=== PATIENT | female | born 1990 | race Hispanic/Latino ===

== ENCOUNTER → 2018-05-04 | Outpatient (CLI) | payer MEDICAID ==
[2018-05-04 13:17] LABS: HEMATOCRIT 35.4 % (36.0-47.0); HEMOGLOBIN 11.7 g/dl (12.0-15.5); MEAN CORPUSCULAR HEMOGLOBIN 29.3 pg (27.0-33.0); MEAN CORPUSCULAR HGB CONC 33.1 g/dl (32.0-36.5); MEAN CORPUSCULAR VOLUME 88.7 fl (80.0-96.0); PLATELET COUNT, AUTOMATED 205 10^3/uL (150-450); RED BLOOD COUNT 3.99 10^6/uL (4.00-5.40); WHITE BLOOD COUNT 7.2 10^3/uL (4.0-10.0)
== END ==
LOC: M SMT 09:53
PROVIDERS: ATTEND Advanced Practice Midwife
DX: Z34.82 Encounter for supervision of other normal pregnancy, second trimester (principal); Z36.89 Encounter for other specified antenatal screening

== ENCOUNTER → 2018-06-24 | Outpatient (CLI) | payer OTHER | LOC: M SMT 10:28 | PROVIDERS: ATTEND Advanced Practice Midwife | DX: O99.513 Diseases of the respiratory system complicating pregnancy, third trimester (principal); Z3A.00 Weeks of gestation of pregnancy not specified ==

== ENCOUNTER 2018-07-12 19:17 | Inpatient (IN) | payer OTHER ==
[~2018-07-12] VITALS: Ht 175.3 cm; Wt 109.0 kg
[2018-07-12] VITALS (13 sets, daily range): BP systolic 116–182; BP diastolic 62–100
--- NOTE | 2018-07-12 20:23 | HPE ---
DATE OF ADMISSION: 07/12/2018 27-year-old, 1, para 0 female at 39-2/7 weeks gestation by last menstrual period (LMP) consistent with 9 week ultrasound, estimated date of confinement (EDC) of 07/17/2018, presents with spontaneous loss of fluid per vagina at about 5 p.m. on the day of admission and continued to leak fluid. Contractions started to increase over the next hour and became intense. She denies vaginal bleeding. There is good movement. COURSE: The patient's initial care was in [place]. She transferred to [place] at 29 weeks of gestation on 05/04/2018. Her course was unremarkable. MEDICAL HISTORY: 1. Mild asthma. SURGICAL HISTORY: None. ALLERGIES: None. SOCIAL HISTORY: The patient lives in [place]. She denies cigarettes, alcohol, or drug use. Father of the baby is involved. FAMILY HISTORY: Noncontributory. PHYSICAL EXAMINATION: Blood pressure 134/84, pulse 84. GENERAL: She appears uncomfortable. HEAD AND NECK EXAM: Normal. LUNGS: Clear. HEART: Regular rate and rhythm. ABDOMEN: Nontender, gravid. heart tones category 1. Contractions every 2-3 minutes. STERILE VAGINAL EXAM: 1 cm, 50%, -2, grossly ruptured, clear fluid. EXTREMITIES: Nontender. LABORATORY DATA: Blood type O positive, Rubella equivocal, diabetes screen 118, GBS negative 06/24/2018. ASSESSMENT: 27-year-old, 1 at 39-2/7 weeks gestation presents with spontaneous rupture of membranes in early labor. PLAN: Plan is to admit on 07/12/2018.
[2018-07-12 20:35] LABS: HEMOGLOBIN 13.7 g/dl (12.0-15.5); MEAN CORPUSCULAR HEMOGLOBIN 29.5 pg (27.0-33.0); MEAN CORPUSCULAR HGB CONC 34.3 g/dl (32.0-36.5); MEAN CORPUSCULAR VOLUME 86.2 fl (80.0-96.0); PLATELET COUNT, AUTOMATED 204 10^3/uL (150-450); RED BLOOD COUNT 4.64 10^6/uL (4.00-5.40); WHITE BLOOD COUNT 10.5 10^3/uL (4.0-10.0)
[2018-07-12] MEDS ORDERED: FENTANYL 2MCG/ML ROPIVACAINE 0.2% IN 0.9% NACL 100ML IVBAG As Ordered ONE (22:34)
[2018-07-12] MEDS ORDERED: EPIDURAL COMMENT XX SCH (23:45)
[2018-07-12] MEDS ORDERED: FENTANYL/ROPIVACAINE/NACL BAG 100 ML EPIDURAL SCH (23:45)
[2018-07-12] MEDS ORDERED: ONDANSETRON 4MG/2ML VIAL (J2405) IV PRN (23:45)
[2018-07-12] MEDS ORDERED: ePHEDrine SULFATE 25 MG/5 ML(5MG/ML) SYRINGE IV PRN (23:45)
[2018-07-12] MEDS ORDERED: diphenhydrAMINE INJ 50MG/ML VIAL (J1200) IV PRN (23:45)
[2018-07-12] MEDS ORDERED: EPIDURAL/PCA KEYS XX PRN (23:45)
[2018-07-12] MEDS ORDERED: NALOXONE INJ 0.4 MG/1 ML VIAL (J2310) IV PRN (23:45)
[2018-07-12] MEDS ORDERED: REFRIGERATOR IV KEYS XX PRN (23:45)
[2018-07-13] VITALS (8 sets, daily range): BP systolic 107–131; BP diastolic 56–83
[2018-07-13] MEDS ORDERED: OXYTOCIN 30 UNITS IN 0.9% NaCl 500ML IV BAG (J2590) As Ordered ONE (00:30)
[2018-07-13] MEDS ORDERED: DOCUSATE SODIUM 100 MG CAP PO PRN (01:15)
[2018-07-13] MEDS ORDERED: MEASLES,MUMPS,RUBELLA VACCINE INJ (MMR-II) (90707) SC SCH (01:15)
[2018-07-13] MEDS ORDERED: OXYTOCIN DRIP 30 UNITS in APPROPRIATE DILUENT 1 EA IV ONE (01:15)
[2018-07-13] MEDS ORDERED: RHOGAM 300 MCG (1500 IU) INJ (J2790) IM SCH (01:15)
[2018-07-13] MEDS ORDERED: ONDANSETRON 4MG/2ML VIAL (J2405) IV PRN (01:15)
[2018-07-13] MEDS ORDERED: ACETAMINOPHEN 500 MG TAB PO PRN (01:15)
[2018-07-13] MEDS ORDERED: DIBUCAINE 1% OINTMENT 30GM TOP PRN (01:15)
[2018-07-13] MEDS ORDERED: METHYLERGONOVINE MALEATE 0.2 MG TAB PO PRN (01:15)
[2018-07-13] MEDS: PRENATAL VITAMINS CHEWABLE TABLET PO SCH (09:10)
--- NOTE | 2018-07-13 15:37 | DN ---
DATE: 07/13/2018 PREDELIVERY DIAGNOSIS: A 39+ week spontaneous rupture of membranes, labor. POSTDELIVERY DIAGNOSIS: Delivered. PROCEDURE: Spontaneous vaginal delivery. EMAIL ENGINEER: Dr. New Schroeder ANESTHESIA: Epidural ESTIMATED BLOOD LOSS: 300 mL. FINDINGS: A 7 pound 3 ounce male infant, scores 9 and 9, 3250 grams. DELIVERY SUMMARY: After a short second stage of approximately 15 minutes, the patient had the spontaneous delivery of a 7 pound 3 ounce male , scores 9 and 9 under epidural anesthesia. There was no nuchal cord. The shoulders delivered with ease. The infant was handed to the mother and cried immediately. The cord was doubly clamped and cut. Placenta delivered spontaneous and appeared to be intact. The patient received intravenous (IV) Pitocin immediately after delivery of the placenta. First-degree perineal laceration was repaired with a [id number] suture of 2-0 chromic. Sponge and needle counts were correct.
[2018-07-13] MEDS: IBUPROFEN 800 MG TAB PO PRN (16:55)
[2018-07-14 06:00] VITALS: BP 94/55
[2018-07-14] MEDS: IBUPROFEN 800 MG TAB PO PRN (08:00)
[2018-07-14] MEDS: PRENATAL VITAMINS CHEWABLE TABLET PO SCH (08:00)
[2018-07-14 14:00] VITALS: BP 125/78
[2018-07-15 06:00] VITALS: BP 125/67
--- NOTE | 2018-07-15 06:43 | NUR ---
Day 2 s/p , uncomplicated S: Pain well controlled, tolerating PO, ambulating without difficulty, voiding spontaneously, lochia decreasing and minimal. Denies f/c/n/v/MORALES/sob/cp. O: Normotensive, normal HR, afebrile ABD: soft, nt, nd, U-2cm and firm A/P: PPD#2. Recovering well. Hemodynamically stable, afebrile, good pain control. -Routine care -Anticipate d/c home today. Savita Mcclellan DO
[2018-07-15] MEDS ORDERED: ACET-683 PO (07:13)
[2018-07-15] MEDS ORDERED: IBUP80TA PO (07:13)
[2018-07-15] MEDS: PRENATAL VITAMINS CHEWABLE TABLET PO SCH (07:44)
[2018-07-15] MEDS: IBUPROFEN 800 MG TAB PO PRN (07:44)
== END 2018-07-15 11:50 | disposition home or self-care (01) | DRG 560 ==
LOC: M LDO 19:17 → M LDI 19:48 → M OBS 07-13 02:36
PROVIDERS: ADMIT Specialist; ATTEND Specialist
PROC: 10E0XZZ Delivery of Products of Conception, External Approach (ICD-10-PCS; principal; 2018-07-13)
PROC: 0HQ9XZZ Repair Perineum Skin, External Approach (ICD-10-PCS; 2018-07-13)
DX: O70.0 First degree perineal laceration during delivery (principal); Z37.0 Single live birth; Z3A.39 39 weeks gestation of pregnancy

== ENCOUNTER 2020-01-18 23:20 | Inpatient (IN) | payer MEDICAID, OTHER ==
[~2020-01-18] VITALS: Ht 175.3 cm; Wt 114.0 kg
[~2020-01-18 23:20] MED LIST: ACET-683 PO; IBUP80TA PO
[2020-01-19] MEDS ORDERED: ALBU83IN INH (00:29)
[2020-01-19] MEDS ORDERED: PROAAER10 INH (00:29)
[2020-01-19] MEDS ORDERED: ALBUTEROL 90 MCG/ACT 8GM HFA INHALER INH PRN (00:45)
[2020-01-19] MEDS ORDERED: VANCOMYCIN HCL 1,000 MG in IV FLUID PLACE HOLDER 1 EA IV SCH (01:00)
[2020-01-19] MEDS ORDERED: PIPERACILLIN/TAZOBACTAM SOD 3.375 GM in D5W MINI-BAG PLUS 50 ML IV ONE (01:00)
[2020-01-19 01:25] VITALS: BP 113/58
[2020-01-19] MEDS ORDERED: MORPHINE 2 MG/ML 1ML VIAL (J2270) IV PRN (01:30)
--- NOTE | 2020-01-19 01:41 | IPNPDOC ---
Text Note Date of Service The patient was seen on 01/19/20. VS,Fishbone, I+O VS, Fishbone, I+O Vital Signs Date Time Temp Pulse Resp B/P (MAP) Pulse Ox O2 Delivery O2 Flow Rate FiO2 01/19/20 01:01 110/69 (83) 01/19/20 00:50 88 17 99 Room Air 01/18/20 23:29 98.0 NOHEMI NESS MD Jan 19, 2020 01:41
[2020-01-19] MEDS: NS 1,000 ML IV SCH ×3 (02:02→22:12)
[2020-01-19] MEDS ORDERED: VANCOMYCIN HCL 1,000 MG, VIAL MATE ADAPTER 1 EACH in D5W 250 ML IV ONE ×2 (02:15→04:00)
[2020-01-19 02:20] LABS: GLOMERULAR FILTRATION RATE > 60.0 (>60)
--- NOTE | 2020-01-19 03:11 | HPEPDOC ---
[facility] Medical History & Physical Date of Admission Jan 19, 2020 Date of Service: Jan 19, 2020 Attending Physician: NOHEMI NESS MD History and Physical CHIEF COMPLAINT: Left sided back pain, fever, nausea vomiting HISTORY OF PRESENT ILLNESS: Patient is a 29 year old female who presented to the [facility] ER as a transfer from [facility] for complaint of fever and back pain. Patient states that she had went to go to the bathroom yesterday and subsequently developed severe pain on the left side of her lower back. She stated that she also noticed decreased feeling and weakness in that leg. She stated that she had fallen yesterday and once this morning. She went to [place] to be evaluated. At the time she was found to be febrile. She received a CT of the head and lumbar spine which were negative with exception to disc bulge at L4-L5 region. Her labs demonstrated a mild transaminitis and mild leukopenia of 3.7. Lactic acid was 2.3. She was vitally stable although tachycardic. She received Rocephin and Azithromycin. The patient was transferred to [facility] due to possibility of COVID At [facility] the patient was test for COVID which resulted negative. She stated that her back pain had improved with morphine. She currently states that she has had nausea and vomiting and has been unable to keep anything down. She states that she does have some mild abdominal pain although she is unsure if this is due to her vomiting. She denies any dysuria or increased frequency. She denies any chest pain or shortness of breath. Hospitalist service was consulted and the patient was admitted for further evaluation and management PAST MEDICAL HISTORY: 1. Asthma PAST SURGICAL HISTORY: NONE SOCIAL HISTORY: Patient lives at home with her boyfriend and son. She is a former smoker. She quit 3 years ago. She denies any alcohol or IV illicit drug use. She is a stay at home mom. She denies any recent sick contacts. She denies any recent travel out of [facility] FAMILY HISTORY: Patients parents and sibilings are alive and well. She denies any pertinent family history ALLERGIES: Please see below. REVIEW OF SYSTEMS: CONSTITUTIONAL: Admits to fevers and chills. Denies nightsweats. Denies unintentional weight loss HEENT: Denies changes in vision. Admits to headache. Denies difficulty swallowing. Denies pain on swallowing CARDIOVASCULAR: Denies chest pain. Denies palpitations or feelings of the heart racing RESPIRATORY: Admits to some shortness of breath although at her baseline. Denies cough or wheezing GASTROINTESTINAL: Admits to abdominal discomfort. Admits to nausea and vomiting. Denies diarrhea or constipation GENITOURINARY: Denies difficulty urinating. Denies dysuria. Denies increased frequency SKIN: Denies rashes or lesions MUSCULOSKELETAL: Admits to left lower back pain that can be severe NEUROLOGICAL: Admits falling due to back pain. Denies weakness. Denies changes in speech PSYCHIATRIC: Denies depression or anxiety ENDOCRINE: Denies heat intolerance or cold intolerance HEMATOLOGIC/LYMPHATIC: Denies easy bruising or bleeding. Denies history of DVT or PE HOME MEDICATIONS: Please see below. PHYSICAL EXAMINATION: VITAL SIGNS: Temperature 98.0, pulse 102, respiratory rate 17, blood pressure 120/66, pulse oximetry 98% on room air. GENERAL APPEARANCE: Patient is awake, alert, and oriented. She does not appear to be in any acute distress. Lying comfortably in stretcher HEENT: Atraumatic, normocephalic. Eyes are nonicteric. Trachea is midline. Mucous membranes are pink and moist CARDIOVASCULAR: Normal S1, S2. Tachycardic rate. Regular rhythm. No clicks rubs or murmurs LUNGS: Clear vesicular breath sounds bilaterally. Symmetric chest expansion. No wheezes, rhonchi or rales ABDOMEN: Soft, morbidly obese. Mild tenderness diffusely. Normoactive bowel sounds MUSCULOSKELETAL: 5/5 muscle strength testing in bilateral upper and lower extremities EXTREMITIES: No edema. No calf swelling, tenderness, or discoloration. Full and equal pulses in bilateral upper and lower extremities NEUROLOGICAL: No focal neurological deficits PSYCHIATRIC: Mood and affect appear appropriate LABORATORY DATA: See below. IMAGING: CT Head from [place] demonstrating no acute intracranial pathology. CT lumbar spine demonstrating L4-L5 disc bulge. Full reports available in paper chart MICROBIOLOGY: Please see below. ASSESSMENT: Patient is a 29 year old female who presented to the [facility] ER as a transfer from [facility] for back pain and fever. Patient was found to meet SIRS criteria and admitted for further evaluation . PLAN: 1. SIRS/Sepsis -Patient presented with fever, tachycardia, and leukopenia. Source of infection has not been identified. COVID respiratory panel is negative. Patient complains of nausea and vomiting. Consider gastroenteritis. She did note back pain that started acutely although no urinary complaints to suggest pyelonephritis. U/A at [place] was negative. -Labs at [place] demonstrated a transaminitis and elevated bilirubin. Patient does admit to abdominal discomfort as well as nausea and vomiting. Consider possible gallbladder etiology. Will order gallbladder U/S -Procalcitonin and CRP ordered -Will start Vancomycin and Zosyn for empiric coverage. MRSA screen ordered. If negative will discontinue Vancomycin -Patient denies IV drug use although toxicology screen at [place] demon strated positive for opiates and THC. If fever persists without a source consider echocardiogram for endocarditis. Additionally patient has back pain, if source identifiable consider MRI for possible abscess 2. Transaminitis -Patient had mildly elevated AST of 78 and ALT of 58 at [place]. Likely secondary to fatty liver however she does have abdominal pain with nausea, vomiting, and fever. Gallbladder ultrasound ordered -Hepatitis Panel ordered. Patient denies IV drug use 3. Left Sided Back Pain -Patient reported back pain that came on suddenly after coughing yesterday. Unclear if her pain is related in any way to her current fever, abdominal pain, and nausea vomiting. Imaging at [place] demonstrated only a disc bulge at L4- L5. -Patient has IV morphine for severe pain. Tylenol moderate pain 4. Asthma -Currently stable. Albuterol HFA prn 5. DVT Prophylaxis -Heparin SQ Vital Signs Vital Signs Date Time Temp Pulse Resp B/P (MAP) Pulse Ox O2 Delivery O2 Flow Rate FiO2 01/19/20 01:01 110/69 (83) 01/19/20 00:50 88 17 99 Room Air 01/18/20 23:29 98.0 Laboratory Data Microbiology Microbiology 01/18/20 Respiratory Virus Panel (PCR) (ABHINAV) - Final, Complete Home Medications Scheduled PRN Albuterol Sulf (Albuterol Sulfate) 2.5 Mg/3 Ml Vial.neb, 2.5 MG INH Q4H PRN for SHORTNESS OF BREATH Albuterol Sulfate (Proair Hfa) 8.5 Gm Hfa.aer.ad, 2 PUFF INH Q4H PRN for SHORTNESS OF BREATH Allergies Coded Allergies: No Known Allergies (Unverified , 07/12/18) A-FIB/CHADSVASC A-FIB History Current/History of A-Fib/PAF?: No GME ATTESTATION GME ATTESTATION My faculty preceptor for this patient encounter was physically present during the encounter and was fully available. All aspects of the patient interview, ex amination, medical decision making process, and medical care plan development were reviewed and approved by the faculty preceptor. The faculty preceptor is aware and concurs with the plan as stated in the body of this note and will attest to such by his/her cosignature. ATTENDING NOTE TIME OF SERVICE 400AM I personal examined the patient, reviewed the H&P and agree with the findings as documented above by KENISHA Mehta DO Jan 19, 2020 01:54 NOHEMI NESS MD Jan 19, 2020 04:49
[2020-01-19] MEDS: ACETAMINOPHEN TAB 650MG DOSE (2X325MG) PO PRN ×3 (03:20→18:11)
[2020-01-19 04:00] VITALS: BP 109/63
[2020-01-19 05:28] LABS: HEMATOCRIT 39.8 % (36.0-47.0); HEMOGLOBIN 12.5 g/dl (12.0-15.5); MEAN CORPUSCULAR HEMOGLOBIN 27.1 pg (27.0-33.0); MEAN CORPUSCULAR HGB CONC 31.4 g/dl (32.0-36.5); MEAN CORPUSCULAR VOLUME 86.3 fl (80.0-96.0); PLATELET COUNT, AUTOMATED 141 10^3/uL (150-450); RED BLOOD COUNT 4.61 10^6/uL (4.00-5.40); WHITE BLOOD COUNT 8.5 10^3/uL (4.0-10.0)
[2020-01-19 05:48] LABS: ALBUMIN 3.1 GM/DL (3.2-5.2); ALT/SGPT 63 U/L (12-78); BILIRUBIN,TOTAL 1.9 MG/DL (0.2-1.0); BLOOD UREA NITROGEN 8 MG/DL (7-18); CALCIUM LEVEL 7.6 MG/DL (8.5-10.1); CARBON DIOXIDE LEVEL 27 MEQ/L (21-32); CHLORIDE LEVEL 106 MEQ/L (98-107); CREATININE FOR GFR 0.78 MG/DL (0.55-1.30); GLOMERULAR FILTRATION RATE > 60.0 (>60); GLUCOSE, FASTING 103 MG/DL (70-100); POTASSIUM SERUM 3.4 MEQ/L (3.5-5.1); SODIUM LEVEL 140 MEQ/L (136-145)
[2020-01-19] MEDS: HEPARIN SOD (PORCINE) 5000UNITS/ML 1ML VIAL/SYRINGE SQ SCH ×3 (05:55→22:00)
[2020-01-19 05:57] LABS: ATYPICAL LYMPH 1 % (0-5); EOSINOPHILS 1 % (0-3); LYMPHOCYTES 12 % (16-44); METAMYELOCYTES 1 % (0-0); MONOCYTES 4 % (0-5); NEUTROPHILS 71 % (28-66)
[2020-01-19 05:58] LABS: PLATELET ESTIMATE NORMAL (NORMAL)
[2020-01-19] MEDS: PIPERACILLIN/TAZOBACTAM SOD 3.375 GM in D5W MINI-BAG PLUS 50 ML IV SCH ×3 (07:51→20:21)
[2020-01-19] MEDS: POTASSIUM CHLORIDE 10 MEQ SR TABLET PO SCH ×2 (07:52→10:07)
[2020-01-19 08:00] VITALS: BP 115/68
[2020-01-19] MEDS: ONDANSETRON 4MG/2ML VIAL IV PRN ×2 (10:06→18:35)
[2020-01-19 10:34] LABS: HEPATITIS A ANTIBODY IGM NEGATIVE (NEGATIVE); HEPATITIS B CORE ANTIBODY IGM NEGATIVE (NEGATIVE); HEPATITIS B SURFACE ANTIGEN NEGATIVE (NEGATIVE); HEPATITIS C VIRUS ABY INDEX 0.1 INDEX (<0.8)
[2020-01-19] MEDS ORDERED: VANCOMYCIN HCL 1,000 MG, VIAL MATE ADAPTER 1 EACH in D5W 250 ML IV SCH (11:00)
[2020-01-19] MEDS ORDERED: ISOVUE-370 76% 100ML VIAL As Ordered ONE (11:32)
[2020-01-19 12:00] VITALS: BP 129/67
[2020-01-19] MEDS ORDERED: VANCOMYCIN HCL 500 MG in D5W MINI-BAG PLUS 100 ML IV SCH (12:00)
--- NOTE | 2020-01-19 12:09 | REP ---
INDICATION: hip pain, fevers COMPARISON: None. TECHNIQUE: CT Scan of the abdomen and pelvis was performed with intravenous administration of 100 cc of Isovue 370, without oral contrast. FINDINGS: Lung bases: Minor fibrotic scarring. Liver: Normal Gallbladder: Unremarkable. Spleen: Normal. Adrenals: Normal. Pancreas: Normal. Kidneys: Normal. Small and large bowel: Unremarkable. No obstruction. Free fluid: None. Abdominal aorta: No aneurysm or dissection. Adenopathy: None. Appendix: Not inflamed. Osseous structures: Unremarkable. Pelvis: There is a 2.1 cm follicle the left ovary. The urinary bladder is mildly distended and appears unremarkable. IMPRESSION: There is a 2.1 cm follicle the left ovary. No acute findings identified. <Electronically signed by Dipesh De > 01/19/20 [id number]
--- NOTE | 2020-01-19 12:21 | REP ---
INDICATION: flank pain, fevers. COMPARISON: Comparison CT study January 19, 2020.. TECHNIQUE: Transabdominal urinary tract sonography. FINDINGS: Scanning at the level of the urinary bladder shows no abnormality. Renal cortical echogenicity pattern is normal bilaterally and contours are smooth. There is no evidence of hydronephrosis, cyst, mass, or calculus in either kidney. The right kidney measures 11.7 x 6.7 x 5.0 cm. Left renal dimensions are 11.8 x 4.9 x 5.8 cm. IMPRESSION: Normal urinary tract sonography. <Electronically signed by Lewis Vela > 01/19/20 [id number]
[2020-01-19 15:55] VITALS: BP 118/62
--- NOTE | 2020-01-19 18:38 | IPNPDOC ---
Text Note Date of Service The patient was seen on 01/19/20. NOTE Subjective: 29-year-old female who was transferred to [facility] from [facility] for fever and back pain. She reports that his back pain is located on the left side just above the iliac crest, intermittent stabbing pain, radiating to her thigh up to the knee, rates the pain as 10/10 when severe and about 5/10 rest of the time. She reports she feels like she can't feel her left hip up to the knee. She reports having 3 falls since 2 days due to the pain and not able to feel her hip. She denied any loss of consciousness, any trauma to the head from the fall, no sick contacts, no pain radiating to her spine. Patient seen at bedside on 01/19/2020. She reports having 5/10 pain and discomfort prior to getting her morning morphine dose, her pain did improve afte r the morphine but not discomfort over the left side of her back, she has nausea, denies having any vomiting, constipation, diarrhea, abdominal pain overnight. Off note: Her last LMP was 2 weeks ago, she reports having some mild bleeding/spotting yesterday and noted blood on tissue when she was wiping after urinating. She denies having any dyspareunia, vaginal discharge. She is in relationship since 11 years, no new sexual partners. She reports to have some cramping during her monthly menstrual cycles. Objective: General: Well developed, Patient is awake, alert, oriented times three, laying in bed , no apparent distress. Eyes: Conjunctiva clear, pupils equal round and reactive to light and accommodation. ENT: Hearing Bilateral normal. No nasal deviation, oropharynx clear with no lesions/erythema. No recent dental procedures done. Neck: supple, no masses, trachea midline, no thyroid nodules, masses, tenderness or enlargement. Cardiovascular: S1, S2, normal rhythm, no murmur, rub, or gallop. Respiratory: Chest is clear to auscultation bilaterally. No rhonchi, wheezes or rubs. Abdomen: Soft, bowel sounds positive, no bruits. No tenderness on palpation. Liver edge, spleen, kidney not felt, no masses. She reported mild tenderness on deep palpation above left groin region. Extremities: No clubbing or cyanosis. No edema, no tenderness. She reports having pain on left side of her back on lifting her left leg against gravity, and against pressure. Spine: No kyphosis, no tenderness over the spine, mild tenderness in the left side about the iliac crest, Central nervous system (UPHOLSTERY BUNDLER): Awake, alert and fully oriented. Cranial nerves III-XII grossly intact. Motor: Strength normal, patient moves all extremities. Skin: No rashes, lesions, ulcerations, subcutaneous nodules or induration appreciated. Assessment: Ms. Alvarado is a 29-year-old female with a past medical history of asthma who was transferred to [facility] from [facility] as she was having fever and back pain. She had a fever of 103 reported while she was being transferred by the EMS to the [facility]. She was worked up in [facility] her CT of the head and lumbar spine was negative except for disc bulging at L4 and L5 region, labs demonstrating mild transaminitis and mild leukopenia of 3.7, lactic acid was 2.3, and received Rocephin and azithromycin. And patient was transferred to [facility] due to possibility of COVID. Patient was tested negative for COVID. Plan: Left Sided back pain: As patient had no fevers on the time of admission here, no leukocytosis, no tachycardic less likely sepsis/SIRS. Her respiratory panel was negative, her gallbladder ultrasound was negative. Will stop vancomycin as her MRSA screen was negative. Will repeat her CRP to look if it is a lab error as her white count is normal. Her hepatitis panel( hepatitis A, hepatitis B, hepatitis C) negative Her pro-calcitonin is still pending. Less likely spinal abscess as patient has no pain or tenderness in the spine and the paraspinal region. Will getting CT abdomen without contrast to rule out psoas abscess as patient was complaining of localized tenderness on palpation. Will get a renal ultrasound as she was also reporting intermittent pain radiating to the left thigh. Will continue Zosyn for now. Will continue morphine 2 mg every 6 hours when necessary for her pain. Asthma: She denies having any shortness breath at this point of time. Will continue albuterol when necessary. DVT prophylaxis: Heparin subcutaneous. Disposition: If patient is doing good overnight, will discharge her tomorrow with follow-up of CRP with the PCP. VS,Fishbone, I+O VS, Fishbone, I+O Laboratory Tests 01/19/20 01:47 01/19/20 04:56 Vital Signs Date Time Temp Pulse Resp B/P (MAP) Pulse Ox O2 Delivery O2 Flow Rate FiO2 01/19/20 12:00 97.9 85 18 129/67 (87) 97 Room Air I&O- Last 24 Hours up to 6 AM 01/19/20 06:00 Intake Total 0 ml Output Total 0 ml Balance 0 ml GME ATTESTATION GME ATTESTATION My faculty preceptor for this patient encounter was physically present during the encounter and was fully available. All aspects of the patient interview, examination, medical decision making process, and medical care plan development were reviewed and approved by the faculty preceptor. The faculty preceptor is aware and concurs with the plan as stated in the body of this note and will attest to such by his/her cosignature. ATTENDING NOTE Patient was seen and examined by me personally with the residents/ students. I agree with the above assessment and plan Beverly Shelton MD Jan 19, 2020 13:29 HERMELINDA BENAVIDES MD Jan 23, 2020 12:46
[2020-01-19 20:00] VITALS: BP 124/75
[2020-01-19] MEDS ORDERED: KETOROLAC 30 MG/ML 1ML VIAL IV ONE (20:15)
[2020-01-20] VITALS: BP 123/59
[2020-01-20] MEDS: PIPERACILLIN/TAZOBACTAM SOD 3.375 GM in D5W MINI-BAG PLUS 50 ML IV SCH ×4 (02:08→19:38)
[2020-01-20 04:00] VITALS: BP 119/66
[2020-01-20] MEDS: ONDANSETRON 4MG/2ML VIAL IV PRN ×2 (04:22→10:10)
[2020-01-20 05:00] LABS: BASO % 0.2 % (0.0-1.0); EOS # 0.1 10^3/uL (0.0-0.5); EOS % 2.3 % (0.0-3.0); HEMATOCRIT 37.1 % (36.0-47.0); LYMPH # 1.4 10^3/uL (1.5-5.0); MEAN CORPUSCULAR HEMOGLOBIN 27.8 pg (27.0-33.0); MEAN CORPUSCULAR HGB CONC 32.3 g/dl (32.0-36.5); MEAN CORPUSCULAR VOLUME 86.1 fl (80.0-96.0); MONO # 0.3 10^3/uL (0.0-0.8); MONO % 7.7 % (0.0-5.0); NEUTROPHILS # 2.6 10^3/uL (1.5-8.5); NEUTROPHILS % 58.6 % (36.0-66.0); PLATELET COUNT, AUTOMATED 147 10^3/uL (150-450); RED BLOOD COUNT 4.31 10^6/uL (4.00-5.40); WHITE BLOOD COUNT 4.4 10^3/uL (4.0-10.0)
[2020-01-20 05:23] LABS: ALBUMIN 3.1 GM/DL (3.2-5.2); ALT/SGPT 58 U/L (12-78); BILIRUBIN,TOTAL 1.3 MG/DL (0.2-1.0); BLOOD UREA NITROGEN 7 MG/DL (7-18); CALCIUM LEVEL 7.8 MG/DL (8.5-10.1); CARBON DIOXIDE LEVEL 27 MEQ/L (21-32); CHLORIDE LEVEL 108 MEQ/L (98-107); CREATININE FOR GFR 0.66 MG/DL (0.55-1.30); GLOMERULAR FILTRATION RATE > 60.0 (>60); GLUCOSE, FASTING 72 MG/DL (70-100); POTASSIUM SERUM 3.4 MEQ/L (3.5-5.1); SODIUM LEVEL 142 MEQ/L (136-145); TOTAL PROTEIN 5.7 GM/DL (6.4-8.2)
[2020-01-20] MEDS: HEPARIN SOD (PORCINE) 5000UNITS/ML 1ML VIAL/SYRINGE SQ SCH ×3 (05:30→22:29)
[2020-01-20 08:00] VITALS: BP 123/68
[2020-01-20] MEDS: NS 1,000 ML IV SCH ×2 (08:10→21:43)
[2020-01-20] MEDS ORDERED: INFLUENZA QUADRIVALENT PF VACCINE 0.5ML SYRINGE IM ONE (09:00)
[2020-01-20] MEDS ORDERED: POTASSIUM CHLORIDE 10 MEQ SR TABLET PO ONE (09:00)
[2020-01-20] MEDS: ACETAMINOPHEN TAB 650MG DOSE (2X325MG) PO PRN ×2 (10:11→19:38)
--- NOTE | 2020-01-20 10:51 | IPNPDOC ---
Text Note Date of Service The patient was seen on 01/20/20. NOTE Subjective: Patient complains of back pain of the left lumbar area above iliac crest with radiation to the left leg alleviated by pain medications. Also patient continues to have nausea. Patient denied any fever, she complains of intermittent sweating. Objective: GENERAL APPEARANCE: NAD HEENT: no scleral icterus, no JVD, EOMI CARDIOVASCULAR: S1S2 LUNGS: CTA ABDOMEN: soft & not tender w palpitation MUSCULOSKELETAL: Tenderness over left lumbar area 1 inch above iliac crest. INTEGUMENT: no generalized palor NEUROLOGICAL: cranial nerve function from 2-12 intact intact, follows commands, speech not dysarthric Assessment and plan Patient is 29 years old female with a past medical history of asthma who was transferred to [facility] from [facility] as she was having fever and back pain. She had a fever of 103 reported while she was being transferred by the EMS to the [facility]. She was worked up in [facility] her CT of the head and lumbar spine was negative except for disc bulging at L4 and L5 region Left-sided back pain Patient continues to have left lumbar pain with radiation to the left leg. Patient developed a few falls 2 days ago due to left leg weakness. Patient stated that she hit her head and she does not remember if she lost her cons ciousness. She continues to have intermittent headache. Patient does not have leukocytosis, no fever. Parkinsonian elevated to 27, which can be associated with trauma but patient has back pain, recent fever, elevated CRP, there is concern for spinal abscess. Will proceed with thoracic and lumbar MRI CT head Sedimentation rate Will continue empirically Zosyn. Will repeat blood culture We will check lactic acid Will proceed with echo Asthma Not in acute exacerbation Continue inhalers VS,Fishbone, I+O VS, Fishbone, I+O Laboratory Tests 01/20/20 04:33 Vital Signs Date Time Temp Pulse Resp B/P (MAP) Pulse Ox O2 Delivery O2 Flow Rate FiO2 01/20/20 08:00 98.8 89 18 123/68 (86) 98 Room Air I&O- Last 24 Hours up to 6 AM 01/20/20 06:00 Intake Total 4620 ml Output Total 1375 ml Balance 3245 ml JOSE J SMILEY DO Jan 20, 2020 10:51
[2020-01-20 11:21] LABS: RHEUMATOID FACTOR QUANT < 10.0 IU/ML (<15.0)
[2020-01-20 12:14] LABS: ERYTHROCYTE SEDIMENTATION RATE 12 mm/hr (0-20)
[2020-01-20] MEDS ORDERED: PROHANCE 279.3MG/ML 5ML VIAL As Ordered ONE (12:15)
[2020-01-20] MEDS ORDERED: PROHANCE 279.3MG/ML 15ML VIAL As Ordered ONE (12:16)
--- NOTE | 2020-01-20 13:32 | REP ---
INDICATION: head trauma. COMPARISON: None. TECHNIQUE: Helical scanning is acquired. 5 mm axial images were reformatted. Coronal MPR images were generated. FINDINGS: Bone window settings demonstrate an intact bony calvarium. There is no evidence of skull fracture or incidental bony calvarial lesion. There is minimal mucosal thickening in 1 of the posterior ethmoid air cells on the right. The visualized paranasal sinuses appear otherwise clear. No intraorbital abnormality is seen. On soft tissue window setting images; the lateral, third, and fourth ventricles are normal in size and position. De-white differentiation pattern is normal above and below the tentorium. There are is no evidence of intracranial hemorrhage. No mass, edema, infarction, or midline shift is seen. No extra-axial fluid collection is appreciated. IMPRESSION: Minimal mucosal thickening in right posterior ethmoid air cells, otherwise negative noncontrast head CT. <Electronically signed by Lewis Vela > 01/20/20 [id number]
--- NOTE | 2020-01-20 13:37 | REP ---
INDICATION: abdominal pain COMPARISON: None. TECHNIQUE: Real time chilel scale ultrasound examination using curved array transducer. FINDINGS: Liver is normal in contour, size, and echogenicity without focal hepatic lesions identified. Pancreas is incompletely evaluated due to interposed bowel gas. The gallbladder is normal and without gallstones, wall thickening, or pericholecystic fluid. No biliary ductal dilatation is appreciated and the common bile duct measures 3.7 mm diameter. Right kidney is normal in reniform shape without hydronephrosis and measures 12.7 x 5.7 x 4.9 cm. No ascites in the visualized right upper quadrant. IMPRESSION: Normal limited right upper quadrant ultrasound <Electronically signed by Cash Mcgill > 01/20/20 [id number]
--- NOTE | 2020-01-20 13:40 | REP ---
INDICATION: spinal abscess. Patient relates a history of a fall with inability to feel legs. COMPARISON: None. TECHNIQUE: Sagittal and axial T1 and T2-weighted scans are acquired in the usual fashion with and without fat saturation. Sequences include spin echo, turbo spin-echo, and STIR imaging sequences. Gadolinium enhancement dose is 20 mL of intravenous ProHance. FINDINGS: Thoracic vertebral body heights are preserved. No collapse is seen. There is a zone of increased T2 signal intensity and contrast enhancement in the left superior sided he 4th vertebral body without cortical disruption. This could be contusion or incidental benign hemangioma. Cortical and medullary bone signal intensity are otherwise normal. There is no evidence of abnormal intraspinal fluid collections is yet to suggest epidural abscess or hematoma. No perispinal fluid collection is seen. There is no evidence of thoracic disc herniation. The thoracic cord is normal in course, caliber, and signal intensity on T1 and T2 weighted scans. The tip of the conus is normal in position and appearance at T12-L1 disc level. Other than the T4 enhancement described above, there is no abnormal contrast enhancement on on post gadolinium images. IMPRESSION: There is a small zone of marrow edema and enhancement in the superior aspect left side of the T4 vertebral body which could be contusion versus incidental small benign hemangioma. Otherwise negative MRI study of the thoracic spine. <Electronically signed by Lewis Vela > 01/20/20 [id number]
[2020-01-20 13:41] VITALS: BP 128/79
--- NOTE | 2020-01-20 14:27 | REPVR ---
PROCEDURE INFORMATION: Exam: MR Lumbar Spine Without and With Contrast. Exam date and time: 01/20/2020 1:29 PM Age: 29 years old Clinical indication: Low back pain; Additional info: R/o spinal abscess. Patient has mid-lower back pain/numbness that goes down the left leg. pt. had a fever and felt nauseous TECHNIQUE: Imaging protocol: Multiplanar magnetic resonance images of the lumbar spine without and with intravenous contrast. Contrast material: PROHANCE; Contrast volume: 20 ml; Contrast route: INTRAVENOUS (IV); COMPARISON: No relevant prior studies available. FINDINGS: Vertebrae: Vertebral body heights are intact. Alignment is maintained. No pars defect is identified. Spinal epidural space: No epidural collection to suggest abscess is identified. Spinal cord: The conus is unremarkable in appearance, with its tip at the T12-L1 level. There is no abnormal enhancement along the cauda equina or thecal sac. Multilevel findings: There are varying degrees of disc desiccation indicating intervertebral disc degeneration. L1-L2: No significant disc disease. No significant spinal canal stenosis. No neural foraminal stenosis. L2-L3: No significant disc disease. No significant spinal canal stenosis. No neural foraminal stenosis. L3-L4: No significant disc disease. No significant spinal canal stenosis. No neural foraminal stenosis. L4-L5: Small bulge combining with facet arthrosis to lead to very mild bilateral neural foraminal narrowing with very mild left lateral recess narrowing, without significant central canal stenosis. L5-S1: Small disc bulge with a superimposed broad-based central protrusion combining with facet arthrosis to lead to very mild right and mild left neural foraminal narrowing with very mild left lateral recess narrowing, without significant central canal stenosis. There is small fluid in the left facet joint. Reproductive: Partially visualized is what appears to be a left adnexal cyst measuring up to at least 2.4 cm. Soft tissues: Unremarkable. IMPRESSION: 1. No epidural abscess identified. 2. Multilevel disc desiccation indicating intervertebral disk degeneration with disc displacements as described. 3. Partially visualized left adnexal cyst measuring up to at least 2.4 cm. Consider ultrasound. COMMENTS: If surgery is considered, recommend level confirmation. Electronically signed by: Dmitry Poe On 01/20/2020 14:27:37 PM
[2020-01-20 16:00] VITALS: BP 121/85
[2020-01-20 19:05] VITALS: BP 116/65
[2020-01-21] VITALS: BP 120/79
[2020-01-21] MEDS: PIPERACILLIN/TAZOBACTAM SOD 3.375 GM in D5W MINI-BAG PLUS 50 ML IV SCH ×2 (01:12→07:39)
[2020-01-21] MEDS: NS 1,000 ML IV SCH (01:12)
[2020-01-21 04:00] VITALS: BP 132/78
[2020-01-21 05:14] LABS: BASO % 0.3 % (0.0-1.0); EOS # 0.1 10^3/uL (0.0-0.5); EOS % 2.5 % (0.0-3.0); HEMATOCRIT 37.1 % (36.0-47.0); LYMPH # 1.6 10^3/uL (1.5-5.0); LYMPH % 45.5 % (24.0-44.0); MEAN CORPUSCULAR HEMOGLOBIN 27.6 pg (27.0-33.0); MEAN CORPUSCULAR HGB CONC 32.3 g/dl (32.0-36.5); MEAN CORPUSCULAR VOLUME 85.3 fl (80.0-96.0); MONO # 0.3 10^3/uL (0.0-0.8); MONO % 7.9 % (0.0-5.0); NEUTROPHILS # 1.5 10^3/uL (1.5-8.5); PLATELET COUNT, AUTOMATED 159 10^3/uL (150-450); RED BLOOD COUNT 4.35 10^6/uL (4.00-5.40); WHITE BLOOD COUNT 3.5 10^3/uL (4.0-10.0)
[2020-01-21 05:27] LABS: ALBUMIN 3.1 GM/DL (3.2-5.2); ALT/SGPT 109 U/L (12-78); BILIRUBIN,TOTAL 0.8 MG/DL (0.2-1.0); BLOOD UREA NITROGEN 6 MG/DL (7-18); CALCIUM LEVEL 7.9 MG/DL (8.5-10.1); CARBON DIOXIDE LEVEL 26 MEQ/L (21-32); CHLORIDE LEVEL 110 MEQ/L (98-107); CREATININE FOR GFR 0.54 MG/DL (0.55-1.30); GLOMERULAR FILTRATION RATE > 60.0 (>60); GLUCOSE, FASTING 78 MG/DL (70-100); POTASSIUM SERUM 3.8 MEQ/L (3.5-5.1); SODIUM LEVEL 142 MEQ/L (136-145); TOTAL PROTEIN 5.7 GM/DL (6.4-8.2)
[2020-01-21] MEDS: HEPARIN SOD (PORCINE) 5000UNITS/ML 1ML VIAL/SYRINGE SQ SCH (06:15)
[2020-01-21] MEDS: ONDANSETRON 4MG/2ML VIAL IV PRN (06:37)
[2020-01-21 07:43] VITALS: BP 121/70
[2020-01-21] MEDS ORDERED: ACET1TAB55 PO (10:05)
--- NOTE | 2020-01-21 10:24 | DS.PDOC ---
Discharge Summary General Date of Admission Jan 18, 2020 at 23:42 Date of Discharge 01/21/20 Discharge Summary PROCEDURES PERFORMED DURING STAY: [None]. ADMITTING DIAGNOSES: Left-sided back pain Asthma DISCHARGE DIAGNOSES: Left-sided back pain Asthma COMPLICATIONS/CHIEF COMPLAINT: SIRS. HISTORY OF PRESENT ILLNESS:Patient is 29 years old female with a past medical history of asthma who was transferred to [facility] from [facility] as she was having fever and back pain. She had a fever of 103 reported while she was being transferred by the EMS to the [facility]. She was worked up in [facility] her CT of the head and lumbar spine was negative except for disc bulging at L4 and L5 region HOSPITAL COURSE: During hospital stay following issues addressed Left-sided back pain Imaging study negative for spinal abscess. Blood culture negative Patient received empiric Zosyn Asthma Not in acute exacerbation Continue inhalers DISCHARGE MEDICATIONS: Please see below. ALLERGIES: Please see below. PHYSICAL EXAMINATION ON DISCHARGE: VITAL SIGNS: Please see below. Objective: GENERAL APPEARANCE: NAD HEENT: no scleral icterus, no JVD, EOMI CARDIOVASCULAR: S1S2 LUNGS: CTA ABDOMEN: soft & not tender w palpitation MUSCULOSKELETAL: Tenderness over left lumbar area 1 inch above iliac crest. INTEGUMENT: no generalized palor NEUROLOGICAL: cranial nerve function from 2-12 intact intact, follows commands, speech not dysarthric LABORATORY DATA: Please see below. IMAGING: [facility] NAME: DAVID QUINTANA DATE OF : 1990 BUSINESS NUMBER: [id number] AGE: 29 SEX: F REPORT #: [id number] ROOM: [facility] TECHNOLOGIST: REMEDIOS DOCTOR: JOSE J SMILEY DO Ordered for Date&Time: 01/20/20 1029 cc: [~ rep ct ivnm] Service Date&Time: 01/20/20 1329 This report is in Signed status. Interpretation performed by [facility]. Thank you for having your radiology procedures performed at [facility] RADIOLOGY REPORT Date&Time printed: [~ rep prt dt last] [~ rep prt tm last] Page [address] of [address] [address] RADIOLOGY REPORT This report is in Signed status. Interpretation performed by [facility]. Thank you for having your radiology procedures performed at [facility] RADIOLOGY REPORT Date&Time printed: [~ rep prt dt last] [~ rep prt tm last] Page 1 of 1 PROCEDURE INFORMATION: Exam: MR Lumbar Spine Without and With Contrast. Exam date and time: 01/20/2020 1:29 PM Age: 29 years old Clinical indication: Low back pain; Additional info: R/o spinal abscess. Patient has mid-lower back pain/numbness that goes down the left leg. pt. had a fever and felt nauseous TECHNIQUE: Imaging protocol: Multiplanar magnetic resonance images of the lumbar spine without and with intravenous contrast. Contrast material: PROHANCE; Contrast volume: 20 ml; Contrast route: INTRAVENOUS (IV); COMPARISON: No relevant prior studies available. FINDINGS: Vertebrae: Vertebral body heights are intact. Alignment is maintained. No pars defect is identified. Spinal epidural space: No epidural collection to suggest abscess is identified. Spinal cord: The conus is unremarkable in appearance, with its tip at the T12-L1 level. There is no abnormal enhancement along the cauda equina or thecal sac. Multilevel findings: There are varying degrees of disc desiccation indicating intervertebral disc degeneration. L1-L2: No significant disc disease. No significant spinal canal stenosis. No neural foraminal stenosis. L2-L3: No significant disc disease. No significant spinal canal stenosis. No neural foraminal stenosis. L3-L4: No significant disc disease. No significant spinal canal stenosis. No neural foraminal stenosis. L4-L5: Small bulge combining with facet arthrosis to lead to very mild bilateral neural foraminal narrowing with very mild left lateral recess narrowing, without significant central canal stenosis. L5-S1: Small disc bulge with a superimposed broad-based central protrusion combining with facet arthrosis to lead to very mild right and mild left neural foraminal narrowing with very mild left lateral recess narrowing, without significant central canal stenosis. There is small fluid in the left facet joint. Reproductive: Partially visualized is what appears to be a left adnexal cyst measuring up to at least 2.4 cm. Soft tissues: Unremarkable. IMPRESSION: 1. No epidural abscess identified. 2. Multilevel disc desiccation indicating intervertebral disk degeneration with disc displacements as described. 3. Partially visualized left adnexal cyst measuring up to at least 2.4 cm. Consider ultrasound. COMMENTS: If surgery is considered, recommend level confirmation. Electronically signed by: Dmitry Mckeon On 01/20/2020 14:27:37 PM DD: DMITRY MCKEON MD 01/20/201328 DT: MARLA 01/20/201426 DS: BRIANNE 01/20/201426 [~ rep ct labl] [facility] NAME: DAVID QUINTANA DATE OF : 1990 AGE: 29 SEX: F REPORT #: [id number] ROOM: [facility] TECHNOLOGIST: REMEDIOS DOCTOR: JOSE J SMILEY DO Ordered for Date&Time: 01/20/201328 cc: [~ rep ct ivnm] Service Date&Time: 01/20/201328 This report is in Signed status. If this report is in a DRAFT status it has not yet been reviewed by the radiologist for accuracy. Thank you for having your radiology procedures performed at [facility] RADIOLOGY REPORT Date&Time printed: [~ rep prt dt last] [~ rep prt tm last] Page 2 of 2 [place] [address] RADIOLOGY REPORT This report is in Signed status. If this report is in a DRAFT status it has not yet been reviewed by the radi ologist for accuracy. Thank you for having your radiology procedures performed at [facility] RADIOLOGY REPORT Date&Time printed: [~ rep prt dt last] [~ rep prt tm last] Page 1 of 1 INDICATION: spinal abscess. Patient relates a history of a fall with inability to feel legs. COMPARISON: None. TECHNIQUE: Sagittal and axial T1 and T2-weighted scans are acquired in the usual fashion with and without fat saturation. Sequences include spin echo, turbo spin-echo, and STIR imaging sequences. Gadolinium enhancement dose is 20 mL of intravenous ProHance. FINDINGS: Thoracic vertebral body heights are preserved. No collapse is seen. There is a zone of increased T2 signal intensity and contrast enhancement in the left superior sided he 4th vertebral body without cortical disruption. This could be contusion or incidental benign hemangioma. Cortical and medullary bone signal intensity are otherwise normal. There is no evidence of abnormal intraspinal fluid collections is yet to suggest epidural abscess or hematoma. No perispinal fluid collection is seen. There is no evidence of thoracic disc herniation. The thoracic cord is normal in course, caliber, and signal intensity on T1 and T2 weighted scans. The tip of the conus is normal in position and appearance at T12-L1 disc level. Other than the T4 enhancement described above, there is no abnormal contrast enhancement on on post gadolinium images. IMPRESSION: There is a small zone of marrow edema and enhancement in the superior aspect left side of the T4 vertebral body which could be contusion versus incidental small benign hemangioma. Otherwise negative MRI study of the thoracic spine. <Electronically signed by Lewis Vela > 01/20/20 1337 DD: Wang Vela MD 01/20/208 DT: EMMANUEL 01/20/201336 DS: CLARISA 01/20/20 1328 01/20/20 1328 [~ rep ct labl] PROGNOSIS: Fair ACTIVITY: [As tolerated]. DIET: Regular DISPOSITION: Home ITEMS TO FOLLOWUP ON ON OUTPATIENT: With PCP DISCHARGE CONDITION: [Stable]. TIME SPENT ON DISCHARGE: Greater than 40 minutes. Vital Signs/I&Os Vital Signs Date Time Temp Pulse Resp B/P (MAP) Pulse Ox O2 Delivery O2 Flow Rate FiO2 01/21/20 07:43 97.6 66 16 121/70 (87) 98 Room Air I&O- Last 24 Hours up to 6 AM 01/21/20 06:00 Intake Total 3961 ml Output Total 1350 ml Balance 2611 ml Laboratory Data Labs 24H Laboratory Tests 2 01/20/20 15:03: Urine Color YELLOW, Urine Appearance CLEAR, Urine pH 6.0, Urine Specific Rogers 1.024, Urine Protein NEGATIVE, Urine Glucose (UA) NEGATIVE, Urine Ketones 2+H, Urine Blood NEGATIVE, Urine Nitrite NEGATIVE, Urine Bilirubin NEGATIVE, Urine Urobilinogen 4.0H, Urine Leukocyte Esterase NEGATIVE, Urine WBC (Auto) 0, Urine RBC (Auto) 0, Urine Hyaline Casts (Auto) 0, Urine Bacteria (Auto) NEGATIVE, Urine Squamous Epithelial Cells 5, Urine Mucus (Auto) SMALL, Urine Sperm (Auto) 01/21/20 04:34: Immature Granulocyte % (Auto) 0.8, Neutrophils (%) (Auto) 43.0, Lymphocytes (%) (Auto) 45.5H, Monocytes (%) (Auto) 7.9H, Eosinophils (%) (Auto) 2.5, Basophils (%) (Auto) 0.3, Neutrophils # (Auto) 1.5, Lymphocytes # (Auto) 1.6, Monocytes # (Auto) 0.3, Eosinophils # (Auto) 0.1, Basophils # (Auto) 0.0, Nucleated Red Blood Cells % (auto) 0.0, Anion Gap 6L, Glomerular Filtration Rate > 60.0, Calcium Level 7.9L, Total Bilirubin 0.8, Aspartate Amino Transf (AST/SGOT) 63H, Alanine Aminotransferase (ALT/SGPT) 109H, Alkaline Phosphatase 62, Total Protein 5.7L, Albumin 3.1L, Albumin/Globulin Ratio 1.2 CBC/BMP Laboratory Tests 01/21/20 04:34 Microbiology Microbiology 01/20/20 Blood Culture, Received Pending 01/20/20 Blood Culture, Received Pending 01/19/20 Blood Culture - Preliminary, Resulted No Growth after 48 hours. All Specime... 01/19/20 Blood Culture - Preliminary, Resulted No Growth after 48 hours. All Specime... 01/18/20 Respiratory Virus Panel (PCR) (ABHINAV) - Final, Complete Discharge Medications Scheduled PRN Acetaminophen (Acetaminophen) 325 Mg Tablet, 650 MG PO Q6HP PRN for PAIN / FEVER Albuterol Sulf (Albuterol Sulfate) 2.5 Mg/3 Ml Vial.neb, 2.5 MG INH Q4H PRN for SHORTNESS OF BREATH, (Reported) Albuterol Sulfate (Proair Hfa) 8.5 Gm Hfa.aer.ad, 2 PUFF INH Q4H PRN for SHORTNESS OF BREATH, (Reported) Allergies Coded Allergies: No Known Allergies (Unverified , 07/12/18) JOSE J SMILEY DO Jan 21, 2020 10:24
--- NOTE | 2020-01-23 07:38 | ECHO ---
DATE OF PROCEDURE: 01/20/2020 Age: 29 Gender: Female Height: 69 inches Weight: 254 pounds Body surface area: 2.29 m2 PATIENT LOCATION: Inpatient progressive care unit (PCU), Room 3217. REFERRING PHYSICIAN: Geoff Khan DO. INDICATION: Sepsis - rule out endocarditis. MEASUREMENTS: 2D Measurements: RV 2.7 cm LV 4.7 cm Septum 1.0 cm Posterior wall 1.0 cm Aortic Root 2.9 cm LA 3.8 cm LVEF 65% Doppler Measurements: AV 1.5 m/s LVOT 1.1 m/s MV-E 99, A 69, E/A ratio 1.4 Early mitral deceleration time 211 m/s E prime medial 12, A prime medial 9, E prime lateral 17.8 PV 1.0 m/s Pulmonary artery acceleration time 137 m/s PASP 20 mmHg IVC 1.9 cm COMMENTS: Normal sinus rhythm without intraventricular conduction disturbance. Technically challenging study, but diagnostically useful information was still obtained. M-mode and two-dimensional echocardiography was performed with pulse, continuous wave, color flow, and tissue Doppler studies. Normal left ventricular size, wall thickness, and wall motion. Normal left atrial size and Doppler assessment of left ventricular (LV) diastolic function and estimated mean left atrial pressure. Normal right heart chamber sizes and motion and estimated pulmonary arterial pressure. Normal inferior vena cava (IVC) size and collapse against an elevated central venous pressure. No apparent intracardiac mass or pericardial effusion. Normal appearing and functioning valvular structures. If a cardiac source of infection/endocarditis is seriously suspect, a transesophageal echo would be the investigation of choice, but as mentioned there did not appear to be any structural or functional valvular abnormality. RAIMUNDOD
== END 2020-01-21 11:09 | disposition home or self-care (01) | DRG 347 ==
LOC: M ED 23:20 → M ED INP 23:42 → ENRESERV 23:55 → M PCU 01-19 01:22
PROVIDERS: ADMIT Internal Medicine; ATTEND Internal Medicine
DX: M54.5 Low back pain (principal); R65.10 Systemic inflammatory response syndrome (SIRS) of non-infectious origin without acute organ dysfunction; J45.909 Unspecified asthma, uncomplicated; Z79.899 Other long term (current) drug therapy; Z87.891 Personal history of nicotine dependence

== ENCOUNTER → 2020-07-11 | Outpatient (CLI) | payer OTHER ==
[~2020-07-11] MED LIST changes: +ACET1TAB55 PO; +ALBU83IN INH; +PROAAER10 INH
--- NOTE | 2020-07-11 11:02 | REP ---
INDICATION: UNSPECIFIED ASTHMA WITH (ACUTE) EXACERBATION COMPARISON: 10/28/2010 TECHNIQUE: PA and lateral. FINDINGS: The mediastinum and cardiac silhouette are normal. The lung roper are clear and without acute consolidation, effusion, or pneumothorax. The skeletal structures are intact and normal. IMPRESSION: No acute cardiopulmonary process. <Electronically signed by Cash Mcgill > 07/11/20 1056
== END ==
LOC: M RAD 10:46
PROVIDERS: ATTEND Nurse Practitioner Family
DX: J45.909 Unspecified asthma, uncomplicated (principal)
CPT/HCPCS: 71046; U0003

== ENCOUNTER → 2020-11-12 | Outpatient (REF) | payer OTHER | LOC: M SFHCLERA 15:35 | PROVIDERS: ATTEND Nurse Practitioner Family | DX: R30.0 Dysuria (principal) ==

== ENCOUNTER → 2021-01-17 | Outpatient (REF) | payer OTHER ==
[2021-01-17 20:46] LABS: GC DNA AMPLIFICATION NEGATIVE (NEGATIVE)
== END ==
LOC: M SFHCPLAZ 18:41
PROVIDERS: ATTEND Physician Assistant
DX: R30.0 Dysuria (principal)